=== PATIENT | female | born 1940 | race Caucasian/White ===

== ENCOUNTER → 2016-11-05 | Outpatient (CLI) | payer MEDICARE, OTHER ==
[2016-03-19 14:24] VITALS: BP 126/64
[~2016-11-05] MED LIST: ACET500T68 PO; ALBU18HF IH; ATOR10TA PO; CARV6.252 PO; ESOM40CA PO; FENO145T PO; FLUT1DIS IH; HYDR-971 PO; NITR100C62 PO; PSEU120T9 PO; ZOLP5TAB PO
--- NOTE | 2016-11-05 12:02 | RAD ---
DATE: 11/05/2016 EXAM: MAMMO SIL SCREENING BILATERAL Bilateral digital screening mammography to include digital breast tomosynthesis (3D mammography) HISTORY: Screening study. COMPARISON: 10/31/2015 This study was interpreted with the benefit of Computerized Aided Detection (CAD). FINDINGS: Digital MLO and CC mammograms of both breasts were obtained. Additionally digital breast tomosynthesis (3D mammography) images of both breasts in the MLO and CC projections were performed. Comparison study is dated 10/31/2015. The breast parenchyma is heterogeneously dense which can obscure a lesion on mammography (breast density code C). No spiculated mass is seen. No malignant appearing calcification or area of architectural distortion is noted. Benign-appearing calcifications are seen within both breasts. Digital breast tomosynthesis images demonstrate no spiculated mass or malignant appearing calcification. Since the previous examination there has been no significant interval change. IMPRESSION: BI-RADS Category 1, negative. There is no mammographic evidence of malignancy. Routine yearly screening mammography is recommended for follow-up. BI-RADS CATEGORY: 1 NEGATIVE RECOMMENDED FOLLOW-UP: 12M 12 MONTH FOLLOW-UP PQRS compliance statement: Patient information was entered into a reminder system with a target due date 11/05/2017 for the next mammogram. Mammography is a sensitive method for finding small breast cancers, but it does not detect them all and is not a substitute for careful clinical examination. A negative mammogram does not negate a clinically suspicious finding and should not result in delay in biopsying a clinically suspicious abnormality. "Our facility is accredited by the [employer] Mammography Program."
== END | disposition home or self-care (01) ==
LOC: MAMMO 10:40
PROVIDERS: ATTEND Specialist
DX: Z12.31 Encounter for screening mammogram for malignant neoplasm of breast (principal)
CPT/HCPCS: 77063; G0202; 77067

== ENCOUNTER 2016-11-22 22:45 | Emergency (ER) | payer MEDICARE, OTHER ==
[~2016-11-22] VITALS: Ht 167.6 cm; Wt 56.7 kg
[~2016-11-22 22:45] MED LIST changes: -FENO145T PO; +FENO145T32 PO
[2016-11-22] MEDS ORDERED: POTASSIUM CHLORIDE 20 MEQ/15 ML ORAL LIQUID. ONE (23:30)
[2016-11-22] MEDS ORDERED: cloNIDine HCL 0.1 MG TABLET ONE (23:30)
[2016-11-23 01:25] VITALS: BP 135/84
[2016-11-23 02:59] LABS: BILIRUBIN,URINE NEG (NEG); CLARITY,URINE CLEAR; COLOR,URINE YELLOW; GLUCOSE,URINE NEG (NEG); NITRITE,URINE NEG (NEG); UROBILINOGEN,URINE 0.2 mg/dL (0.2 mg/dL)
[2016-11-23 03:00] LABS: BACTERIA,URINE FEW /HPF (0-FEW); RBC,URINE RARE /HPF (0-2); WBC,URINE 0 /HPF (0-4)
[2016-11-23 03:08] LABS: CALCIUM 9.3 mg/dL (8.5-10.1)
[2016-11-23 03:09] LABS: GFR 54.2; HEMOGLOBIN 13.8 g/dL (12.0-15.5); POTASSIUM 3.2 mmol/L (3.5-5.1); RED BLOOD COUNT 4.91 x10^6/uL (3.50-5.40); WHITE BLOOD COUNT 6.6 x10^3/uL (4.0-11.0)
[2016-11-23] MEDS ORDERED: ESOM20CA PO (03:09)
[2016-11-23] MEDS ORDERED: CARV3.12 PO (03:09)
[2016-11-23 03:10] LABS: BASO # 0.1 x10^3/uL (0.0-0.2); BASO % 2 % (0-3); EOS # 0.2 x10^3/uL (0.0-0.7); EOS % 3 % (0-3); HEMATOCRIT 41.9 % (36.0-47.0); LYMPH # 2.4 x10^3/uL (1.0-4.8); LYMPH % 36 % (24-48); MEAN CORPUSCULAR HEMOGLOBIN 28 pg (25-35); MEAN CORPUSCULAR HGB CONC 33 g/dL (31-37); MEAN CORPUSCULAR VOLUME 85 fL (79-100); MONO # 0.4 x10^3/uL (0.0-1.1); MONO % 6 % (0-9); NEUT # 3.6 x10^3uL (1.8-7.7); NEUT % 54 % (31-73); PLATELET COUNT 237 x10^3/uL (140-400); RED CELL DISTRIBUTION WIDTH 13.7 % (11.5-14.5)
[2016-11-23] MEDS ORDERED: RANI300T PO (03:11)
[2016-11-23] MEDS ORDERED: DIPH25CA58 PO (03:12)
[2016-11-23] MEDS ORDERED: [UNRECOGNIZED DRUG - CODE] TP (03:12)
--- NOTE | 2016-11-26 12:14 | EKG ---
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
== END 2016-11-23 01:37 | disposition home or self-care (01) ==
LOC: ER 22:45
DX: I10 Essential (primary) hypertension (principal); E87.6 Hypokalemia; K21.9 Gastro-esophageal reflux disease without esophagitis; Z88.0 Allergy status to penicillin; Z88.6 Allergy status to analgesic agent; Z88.1 Allergy status to other antibiotic agents
CPT/HCPCS: 36415; 80048; 81001; 84484; 85027; 85379; 99284; 99285-25

== ENCOUNTER → 2018-01-13 | Outpatient (CLI) | payer MEDICARE, OTHER ==
[~2018-01-13] MED LIST changes: +CARV3.12 PO; +DIPH25CA58 PO; +ESOM20CA PO; +RANI300T PO; +[UNRECOGNIZED DRUG - CODE] TP
--- NOTE | 2018-01-13 13:24 | RAD ---
DATE: 01/13/2018 EXAM: MAMMO SIL SCREENING BILATERAL HISTORY: Routine screening COMPARISON: 11/05/2016 This study was interpreted with the benefit of Computerized Aided Detection (CAD). The breast parenchyma is heterogeneously dense, which could reduce sensitivity of mammography. Breast parenchyma level C. FINDINGS: 2-D and 3-D tomosynthesis imaging was performed in CC and MLO projections. No new or enlarging breast densities are seen. Minimal benign type calcifications are present. No suspicious microcalcifications have developed. IMPRESSION: Stable mammograms without evidence of malignancy. BI-RADS CATEGORY: 2 BENIGN FINDING(S) RECOMMENDED FOLLOW-UP: 12M 12 MONTH FOLLOW-UP PQRS compliance statement: Patient information was entered into a reminder system with a target due date for the next mammogram. Mammography is a sensitive method for finding small breast cancers, but it does not detect them all and is not a substitute for careful clinical examination. A negative mammogram does not negate a clinically suspicious finding and should not result in delay in biopsying a clinically suspicious abnormality. "Our facility is accredited by the [employer] Mammography Program."
== END | disposition home or self-care (01) ==
LOC: MAMMO 11:14
PROVIDERS: ATTEND Specialist
DX: Z12.31 Encounter for screening mammogram for malignant neoplasm of breast (principal)
CPT/HCPCS: 77063; 77067

== ENCOUNTER → 2019-01-14 | Outpatient (CLI) | payer MEDICARE, OTHER ==
[~2019-01-14] MED LIST changes: -ALBU18HF IH; +ALBU2.5V8 IH; -CARV6.252 PO; +CARV6.2541 PO; +HYDR-3165 PO; -HYDR-971 PO
--- NOTE | 2019-01-20 13:04 | RAD ---
DATE: 01/14/2019 EXAM: MAMMO SIL SCREENING BILATERAL HISTORY: Routine screening COMPARISON: 01/13/2018 This study was interpreted with the benefit of Computerized Aided Detection (CAD). Breast Density: SCATTERED The breast parenchyma shows scattered fibroglandular densities. Breast parenchyma level B. FINDINGS: 2-D and 3-D tomosynthesis imaging was performed in CC and MLO projections. No new or enlarging breast densities are seen. Benign type calcifications are present. No suspicious microcalcifications have developed. IMPRESSION: There is no mammographic evidence of malignancy in either breast. BI-RADS CATEGORY: 2 BENIGN FINDING(S) RECOMMENDED FOLLOW-UP: 12M 12 MONTH FOLLOW-UP PQRS compliance statement: Patient information was entered into a reminder system with a target due date for the next mammogram. Mammography is a sensitive method for finding small breast cancers, but it does not detect them all and is not a substitute for careful clinical examination. A negative mammogram does not negate a clinically suspicious finding and should not result in delay in biopsying a clinically suspicious abnormality. "Our facility is accredited by the [employer] Mammography Program."
== END | disposition home or self-care (01) ==
LOC: MAMMO 10:31
PROVIDERS: ATTEND Specialist
DX: Z12.31 Encounter for screening mammogram for malignant neoplasm of breast (principal); N64.89 Other specified disorders of breast
CPT/HCPCS: 77063; 77067

== ENCOUNTER → 2021-08-14 | Outpatient (CLI) | payer MEDICARE, OTHER ==
--- NOTE | 2021-08-14 13:47 | RAD ---
XR RT WRIST 3VIEWS History: Reason: FALL A FEW DAYS AGO, WRIST PAIN / Spl. Instructions: / History: Technique: 3 views right wrist Comparison: None. Findings: No dislocation. Slight linear sclerosis through the mid aspect of the scaphoid. Widening of the scaph olunate interval on PA view measures approximately 4 mm. Impression: 1. Widening of the scapholunate interval, suggesting scapholunate ligament injury. 2. Slight linear sclerosis through the mid scaphoid, may represent fracture. Recommend correlation f or point tenderness. Dedicated scaphoid view can further assess. Electronically signed by: Tim Castillo DO (08/14/2021 1:45 PM) [id number]
== END ==
LOC: RAD 10:21
PROVIDERS: ATTEND Specialist
DX: E23.6 Other disorders of pituitary gland (principal)
CPT/HCPCS: 73110

== ENCOUNTER → 2021-09-12 | Outpatient (CLI) | payer MEDICARE, OTHER ==
[~2021-09-12] MED LIST changes: +CALC-712 PO; +CARV6.25 PO; +CETI10TA74 PO; +CHOL10004 PO; +DONE5TAB56 PO; +ESTR30CR VG; +MULT-735 PO; +NORT10CA PO; +OMEG-32 PO; +PANT40TA3 PO; +SERT50TA PO
--- NOTE | 2021-09-12 10:32 | RAD ---
EXAM: Right wrist, 3 views. HISTORY: Pain. Fracture follow-up. COMPARISON: 08/14/2021 FINDINGS: 3 views of the right wrist are obtained. There is persistent widening of the scapholunate i nterval favoring chronic ligament injury. There is a subacute triquetral fracture. There is slight co rtical irregularity involving the distal pole the scaphoid which is likely degenerative or the sequel a of remote injury. IMPRESSION: 1. Subacute minimally displaced triquetral fracture. 2. Stable widening of the scapholunate interval favoring chronic scapholunate ligament injury. Electronically signed by: Luciana Morgan MD (09/12/2021 10:30 AM) [id number]
== END ==
LOC: RAD 10:00
PROVIDERS: ATTEND Orthopaedic Surgery
DX: S62.111A Displaced fracture of triquetrum [cuneiform] bone, right wrist, initial encounter for closed fracture (principal); M25.531 Pain in right wrist; X58.XXXA Exposure to other specified factors, initial encounter; Y93.89 Activity, other specified; Y92.89 Other specified places as the place of occurrence of the external cause; Y99.8 Other external cause status
CPT/HCPCS: 73110

== ENCOUNTER 2021-09-13 23:56 | Inpatient (IN) | payer MEDICARE, OTHER ==
[~2021-09-13] VITALS: Ht 167.6 cm; Wt 50.4 kg
[~2021-09-13 23:56] MED LIST changes: -CALC-712 PO; -CARV6.25 PO; -CETI10TA74 PO; -CHOL10004 PO; -DONE5TAB56 PO; -ESTR30CR VG; -MULT-735 PO; -NORT10CA PO; -OMEG-32 PO; -PANT40TA3 PO; -SERT50TA PO
[2021-09-14] MEDS ORDERED: IV RINGERS SOLUTION,LACTATED 1,000 ML IV ONE ×2 (00:15→02:45)
[2021-09-14] MEDS ORDERED: METOCLOPRAMIDE HCL 10 MG/2 ML VIAL. IVP ONE (00:15)
--- NOTE | 2021-09-14 00:22 | PHYS DOC ---
Past History Past Medical History: GERD, High Cholesterol, Hypertension, Other Past Surgical History: Oophorectomy, Other Alcohol Use: Occasionally Drug Use: None Adult General Chief Complaint Chief Complaint: NAUSEA/VOMITING/DIARRHEA HPI HPI Patient is a 81-year-old female with a recent history of urinary tract infection treated with Bactrim who presents to the emergency department today with a chief complaint of nausea, vomiting and watery nonbloody diarrhea for a day. Denies any recent travel, traumas, illnesses, fevers, chest pain, shortness of breath, dysuria, hematuria, blood in the stool. Denies any known ill contacts. States up until this episode she was eating and drinking normally for her. Review of Systems Review of Systems Review of systems otherwise unremarkable except noted in HPI Allergies Allergies Allergies Coded Allergies Type Severity Reaction Last Updated Verified Penicillins Allergy Severe Anaphylaxis 09/14/21 Yes carisoprodol Allergy Intermediate 09/14/21 Yes tramadol Allergy Intermediate 09/14/21 Yes tetracycline Adverse Reaction Mild abdominal pain 09/14/21 Yes Physical Exam Physical Exam Constitutional: Well developed, well nourished, no acute distress, appears to not feel well [] HENT: Normocephalic, atraumatic, bilateral external ears normal, oropharynx dry, no oral exudates, nose normal. [] Eyes: conjunctiva normal, no discharge. [] Neck: Normal range of motion, no tenderness, supple, no stridor. [] Cardiovascular: Sinus bradycardia] Lungs & Thorax: Bilateral breath sounds clear to auscultation [] Abdomen: soft, generalized tenderness, no rebound or guarding, no masses, no pulsatile masses. [] Skin: Warm, dry, no erythema, no rash. [] Back: no CVA tenderness. [] Extremities: No tenderness, no cyanosis, no clubbing, ROM intact, no edema. [] Neurologic: Alert and oriented X 3, normal motor function, normal sensory function, no focal deficits noted. [] Psychologic: Affect normal, judgement normal, mood normal. [] EKG EKG [] Radiology/Procedures Radiology/Procedures [] Heart Score C/O Chest Pain: No Risk Factors: Risk Factors: DM, Current or recent (<one month) smoker, HTN, HLP, family history of CAD, obesity. Risk Scores: Risk Factors: DM, Current or recent (<one month) smoker, HTN, HLP, family history of CAD, obesity. Course & Med Decision Making Course & Med Decision Making Patient is a 81-year-old female who presents with a chief complaint of nausea, vomiting and diarrhea Vital signs notable for sinus bradycardia, hypertension. Physical exam noted above. Placed on the monitor with IV access established and IV fluid begun. Given antiemetics. EKG with a rate of 57, QRS 98, QTc of 492, no STEMI Laboratory analysis notable for elevated lipase suggestive of pancreatitis. Patient with no alcohol use and no obvious gallstone. Patient did recently start Bactrim which does have the rare complication of pancreatitis. Made NPO. Continued on fluid resuscitation. Nausea and pain medicine ordered as needed. Stopped Bactrim and started on cefepime. Discussed findings with family and recommended admission for continued evaluation treatment of her pancreatitis and urinary tract infection., Grateful, verbalized understanding and agreed with plan of admission to [facility]. [] Dragon Disclaimer Dragon Disclaimer This electronic medical record was generated, in whole or in part, using a voice recognition dictation system. Departure Departure: Impression: Primary Impression: Nausea vomiting and diarrhea Additional Impressions: Pancreatitis Urinary tract infection Admitting Physician: Carlos Do Condition: STABLE Referrals: RYLEE DALLAS MD (PCP) Problem Qualifiers JOSIAH NICOLE MD Sep 14, 2021 00:22
[2021-09-14 00:39] LABS: BASO # 0.1 x10^3/uL (0.0-0.2); BASO % 2 % (0-3); EOS # 0.2 x10^3/uL (0.0-0.7); EOS % 2 % (0-3); HEMATOCRIT 41.9 % (36.0-47.0); LYMPH # 1.4 x10^3/uL (1.0-4.8); LYMPH % 17 % (24-48); MEAN CORPUSCULAR HEMOGLOBIN 30 pg (25-35); MEAN CORPUSCULAR HGB CONC 33 g/dL (31-37); MEAN CORPUSCULAR VOLUME 89 fL (79-100); MONO # 0.5 x10^3/uL (0.0-1.1); MONO % 6 % (0-9); NEUT # 6.2 x10^3uL (1.8-7.7); NEUT % 73 % (31-73); PLATELET COUNT 200 x10^3/uL (140-400); RED BLOOD COUNT 4.73 x10^6/uL (3.50-5.40); RED CELL DISTRIBUTION WIDTH 13.6 % (11.5-14.5); WHITE BLOOD COUNT 8.5 x10^3/uL (4.0-11.0)
--- NOTE | 2021-09-14 00:48 | EKG ---
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
[2021-09-14 00:51] LABS: CALCIUM 9.3 mg/dL (8.5-10.1); CREATININE 1.2 mg/dL (0.6-1.0); GFR 43.3; POTASSIUM 3.5 mmol/L (3.5-5.1)
[2021-09-14 00:58] LABS: ALBUMIN 4.1 g/dL (3.4-5.0); ALBUMIN/GLOBULIN RATIO 1.4 (1.0-1.7); MAGNESIUM 2.1 mg/dL (1.8-2.4); TOTAL BILIRUBIN 0.4 mg/dL (0.2-1.0)
--- NOTE | 2021-09-14 01:00 | RAD ---
XR CHEST 1V INDICATION: cardiac w/u COMPARISON STUDY: 12/01/2014. FINDINGS: Lungs: Normal lung volume. No pulmonary mass or consolidation. The tracheobronchial tree and hilar st ructures are normal. Pleura: No pleural effusion or pneumothorax. Heart and Mediastinum: The cardiomediastinal silhouette is normal. Mild tortuosity of the thoracic ao rta. IMPRESSION: No consolidation. Electronically signed by: Jefry Henao MD (09/14/2021 12:57 AM) [facility]
[2021-09-14] MEDS ORDERED: IOHEXOL 300 MG/ML 75 ML VIAL. IV ONE (01:30)
[2021-09-14] MEDS ORDERED: CONTRAST GIVEN. MC PRN (01:45)
[2021-09-14 01:57] LABS: AMORPHOUS SEDIMENT,UR PRESENT /HPF; BACTERIA,URINE 0 /HPF (0-FEW); CLARITY,URINE HAZY; COLOR,URINE YELLOW; GLUCOSE,URINE NEG (NEG); NITRITE,URINE NEG (NEG); RBC,URINE OCC /HPF (0-2); SQUAMOUS EPITHELIAL CELL,UR OCC /LPF; UROBILINOGEN,URINE 0.2 mg/dL (0.2 mg/dL); WBC,URINE OCC /HPF (0-4)
--- NOTE | 2021-09-14 02:28 | RAD ---
CT ABDOMEN+PELVIS W History: Abd pain, elevated lipase Comparison: None. Technique: After administration of intravenous contrast, helical CT of the abdomen and pelvis was per formed from the lung bases through the ischial tuberosities. Coronal and sagittal reconstructions wer e obtained. 75 mL of Omnipaque 300 were used. One or more of the following dose reduction techniques were utilized: Automated exposure control (AEC), Adjustment of mA and/or kV according to patient size , Use of iterative reconstruction technique such as ASiR, CT scan done according to ALARA and image g ently/image wisely Abdomen Findings: The visualized lung bases are clear. The liver, gallbladder, pancreas, spleen, and bilateral adrenal glands are normal. Symmetric renal enhancement. There is no focal renal mass. There is no hydronephrosis. The visualized loops of small bowel are normal. Colonic diverticulosis. There is no evidence of bowel obstruction. Appendix is normal. There is no free fluid. There is no mesenteric or retroperitoneal adenopathy. The abdominal aorta is normal in caliber. Mild aortoiliac atherosclerotic disease. Pelvis Findings: Urinary bladder is normal. No pelvic free fluid. Transitional anatomy at the lumbosacral junction wit h the transitional element designated a lumbarized S1 vertebra with recent enteric disc at S1-S2. Deg enerative changes of the spine, worst at L4-5 with severe spinal canal stenosis. There is no acute bony abnormality. IMPRESSION: 1. Circumferential cervical thickening is poorly characterized by CT but could represent an infectiou s/inflammatory process or malignancy. Recommend pelvic ultrasound and/or direct visualization. 2. No peripancreatic inflammation or fluid collection. 3. Colonic diverticulosis. 4. Transitional lumbosacral anatomy. Severe spinal canal stenosis at L4-5. Electronically signed by: Jefry Henao MD (09/14/2021 2:26 AM) [facility]
[2021-09-14] MEDS ORDERED: MORPHINE SULFATE 2 MG/ML DISP.SYRIN. IVP PRN (02:45)
[2021-09-14] MEDS ORDERED: ONDANSETRON PF 4 MG/2 ML VIAL. IVP PRN (02:45)
[2021-09-14 04:23] VITALS: BP 162/83
[2021-09-14] MEDS ORDERED: CARV6.25 PO (04:30)
[2021-09-14] MEDS ORDERED: NORT10CA PO (04:30)
[2021-09-14] MEDS ORDERED: CALC-712 PO (04:30)
[2021-09-14] MEDS ORDERED: DONE5TAB56 PO (04:30)
[2021-09-14] MEDS ORDERED: CETI10TA74 PO (04:30)
[2021-09-14] MEDS ORDERED: MULT-735 PO (04:30)
[2021-09-14] MEDS ORDERED: SERT50TA PO (04:30)
[2021-09-14] MEDS ORDERED: ESTR30CR VG (04:30)
[2021-09-14] MEDS ORDERED: ATOR10TA PO (04:30)
[2021-09-14] MEDS ORDERED: OMEG-32 PO (04:30)
[2021-09-14] MEDS ORDERED: CHOL10004 PO (04:30)
[2021-09-14] MEDS ORDERED: PANT40TA3 PO (04:30)
[2021-09-14] MEDS: CEFEPIME HCL 1 GM in IV NORMAL SALINE 50ML 50 ML IV SCH ×3 (04:52→21:00)
[2021-09-14 11:00] VITALS: BP 133/68
--- NOTE | 2021-09-14 11:54 | HP ---
DATE OF SERVICE: 09/14/2021 ADMIT DATE: 09/14/2021 ATTENDING PHYSICIAN: Dr. Do. CHIEF COMPLAINT: Abdominal pain. HISTORY OF PRESENT ILLNESS: The patient is a 81-year-old female admitted to the ED with new onset of nausea, vomiting, watery diarrhea for 1-day duration. She does drink wine at dinner. She had an elevated lipase. Workup showed evidence of acute pancreatitis. She was admitted then with alcoholic pancreatitis. There are no gallstones. PAST MEDICAL HISTORY: Significant for gastroesophageal reflux disease, hyperlipidemia, hypertension and a previous oophorectomy. SOCIAL HISTORY: She is a nonsmoker. Alcohol history noted, wine with dinner. ALLERGIES: SHE HAS SEVERAL ALLERGIES INCLUDING PENICILLIN, SOMA, TETRACYCLINE, AND TRAMADOL, EXACT REACTION IS UNCLEAR. CURRENT MEDICATIONS: Include a prescription for Bactrim. In addition, she was on scheduled Lipitor, calcium, Coreg, Zyrtec estrogens, multivitamin, nortriptyline, Protonix, Zoloft, and vitamin D. FAMILY HISTORY: Father of leukemia at age 53. Mom of old age at age 90. 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 She is . Her children are grown. REVIEW OF SYSTEMS: Significant for the alcohol use. There is no COVID exposure. All other systems reviewed and turned out to be negative. She had been on Bactrim for UTI. PHYSICAL EXAMINATION: GENERAL: When I saw her, this is a pleasant female. VITAL SIGNS: Initial vital signs showed a blood pressure 129/70, pulse is 61 and regular. She was afebrile, oxygen saturation 98% on room air. HEENT: Head is without trauma. Pupils are reactive. Sclerae nonicteric. Oropharynx is clear. NECK: Supple, no bruits identified. LUNGS: Clear to auscultation. CARDIOVASCULAR: Regular heart tones. ABDOMEN: Soft. EXTREMITIES: Without edema. ABDOMEN: Shows no guarding or rebound tenderness. PERTINENT LABORATORY STUDIES: On admission, her hemoglobin was 14.0 g/dL with a white count 8500. Chemistry panel normal electrolytes. Her lipase was 1500. Creatinine 1.2 mg percent. Urinalysis is clear. Serology negative for coronavirus. IMAGING STUDIES: Chest x-ray unremarkable. Abdominal and pelvic CT show circumferential cervical thickening, which is unremarkable. It is not related to her symptoms. The pancreas and gallbladder are unremarkable at this time. ASSESSMENT: 1. A 81-year-old female with acute pancreatitis. 2. Alcoholic pancreatitis. 3. History of hypertension. 4. Abnormal findings on CT pelvis. She told me she had a normal PAP smear in the last several weeks. I will try to ascertain this through her primary care doctor. PLAN: 1. Admit. 2. Pain and nausea control. 3. Gentle IV hydration. 4. N.p.o. except for ice chips at this time. ROMELIA DR: Marybel TID: [id number] CC: RYLEE DALLAS MD
[2021-09-14 15:00] VITALS: BP 152/76
[2021-09-14 20:33] VITALS: BP 148/70
[2021-09-14] MEDS: IV RINGERS SOLUTION,LACTATED 1,000 ML IV SCH (21:00)
[2021-09-14 23:04] VITALS: BP 166/73
[2021-09-15 05:36] VITALS: BP 176/78
[2021-09-15] MEDS ORDERED: ACETAMINOPHEN 325 MG TABLET PO ONE ×3 (06:12→06:42)
[2021-09-15 06:40] LABS: BASO % 1 % (0-3); EOS # 0.2 x10^3/uL (0.0-0.7); EOS % 3 % (0-3); HEMATOCRIT 39.4 % (36.0-47.0); HEMOGLOBIN 13.1 g/dL (12.0-15.5); LYMPH % 20 % (24-48); MEAN CORPUSCULAR HEMOGLOBIN 30 pg (25-35); MEAN CORPUSCULAR HGB CONC 33 g/dL (31-37); MEAN CORPUSCULAR VOLUME 90 fL (79-100); MONO # 0.3 x10^3/uL (0.0-1.1); MONO % 7 % (0-9); NEUT # 3.5 x10^3uL (1.8-7.7); NEUT % 70 % (31-73); PLATELET COUNT 158 x10^3/uL (140-400); RED CELL DISTRIBUTION WIDTH 13.5 % (11.5-14.5)
[2021-09-15 06:58] LABS: CALCIUM 8.7 mg/dL (8.5-10.1); CREATININE 0.9 mg/dL (0.6-1.0); GFR 60.4; POTASSIUM 3.7 mmol/L (3.5-5.1)
[2021-09-15] MEDS ORDERED: CARVEDILOL 12.5 MG TABLET PO SCH (08:00)
[2021-09-15 08:26] VITALS: BP 133/67
[2021-09-15] MEDS: CEFEPIME HCL 1 GM in IV NORMAL SALINE 50ML 50 ML IV SCH (09:00)
[2021-09-15] MEDS: IV RINGERS SOLUTION,LACTATED 1,000 ML IV SCH (10:20)
--- NOTE | 2021-09-15 13:12 | DS ---
DATE OF DISCHARGE: 09/15/2021 ATTENDING PHYSICIAN: Dr. Do. FINAL DISCHARGE DIAGNOSES: 1. Acute pancreatitis. Etiology most likely alcohol related. 2. History of hypertension. 3. History of uterine prolapse. 4. Mild dementia. 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 She drinks wine socially and I believe this is just enough to trigger this. OBJECTIVE FINDINGS, PHYSICAL EXAMINATION: Please see the dictated note. PERTINENT LABORATORY AND X-RAY STUDIES: Admission hemoglobin was 14.5 g/dL, white count 8500. Chemistry panel admission lipase was 1565, repeated the next day was down to 381. Electrolytes within normal range. Potassium replaced to 3.7 mEq, creatinine 0.[address] of the abdomen and pelvis showed early signs of pancreatitis. She has some abnormal thickening of her uterine wall, this is related to her uterine prolapse. She has had a recent Pap smear. She is scheduled to have a pessary provided for her through a Gynecology services at [facility]. COURSE IN HOSPITAL: The patient was admitted. She was kept n.p.o. Pain and nausea controlled. Gentle IV hydration. She was better. Diet was advanced to liquids. She tolerated well. By the third hospital day, her vital signs were quite stable. Her abdominal pain had subsided. Blood pressure and vital signs were quite normal. She is discharged home with recommendations to follow a bland diet for 48 hours. Her home meds are unchanged. She will continue with Tylenol as needed for pain. This is managing it. In addition, she will continue her Tylenol, calcium, Coreg, Zyrtec, cholecalciferol, diphenhydramine, Aricept, estrogens, multivitamin, Protonix, and Zoloft. For now, I held nortriptyline. She was discharged then from our hospital in stable condition with explicit drug and followup care with Dr. Dallas. Total discharge time was 41 minutes. JANNIE/NIMESH DR: Marybel TID: [id number] CC: RYLEE DALLAS MD
== END 2021-09-15 10:00 | disposition home or self-care (01) | DRG 439 ==
LOC: ER 23:56 → ER HOLD 09-14 02:37 → 1 SOUTH 09-14 03:34
PROVIDERS: ADMIT Hospitalist; ATTEND Hospitalist
DX: K85.20 Alcohol induced acute pancreatitis without necrosis or infection (principal); N39.0 Urinary tract infection, site not specified; E78.00 Pure hypercholesterolemia, unspecified; Z20.822 Contact with and (suspected) exposure to COVID-19; E78.5 Hyperlipidemia, unspecified; F03.90 Unspecified dementia, unspecified severity, without behavioral disturbance, psychotic disturbance, mood disturbance, and anxiety; I10 Essential (primary) hypertension; N81.4 Uterovaginal prolapse, unspecified; K21.9 Gastro-esophageal reflux disease without esophagitis; K57.30 Diverticulosis of large intestine without perforation or abscess without bleeding; Z80.6 Family history of leukemia; Z88.0 Allergy status to penicillin; Z88.8 Allergy status to other drugs, medicaments and biological substances
CPT/HCPCS: 36415; 71045; 73110; 74177; 80048; 80053; 81001; 83690; 83735; 84484; 85025; 87426; 93005; 96361; 96374; J0692; J2270; J2765; J7120; P9612; Q9967; U0003; 99285-25

== ENCOUNTER → 2021-10-15 | Outpatient (CLI) | payer MEDICARE, OTHER ==
[2021-09-15 08:26] VITALS: BP 133/67
[~2021-10-15] MED LIST changes: +CALC-712 PO; +CARV6.25 PO; +CETI10TA74 PO; +CHOL10004 PO; +DONE5TAB56 PO; +ESTR30CR VG; +MULT-735 PO; +NORT10CA PO; +OMEG-32 PO; +PANT40TA3 PO; +SERT50TA PO
--- NOTE | 2021-10-15 09:39 | RAD ---
INDICATION: Reason: ACUTE PANCREATITIS WITHOUT NECROSIS OR INFECTION / Spl. Instructions: / History: COMPARISON: September 14, 2021 TECHNIQUE: Grayscale and color ultrasound images obtained through the abdomen. FINDINGS: Pancreas: Largely obscured by bowel gas Liver: Echotexture within normal limits. Gallbladder: No definite stones or wall thickening. Common Bile Duct: Not dilated. Right Kidney: No hydronephrosis. Left Kidney: No hydronephrosis. Spleen: 10 mm echogenic lesion Aorta/IVC: Limited assessment secondary to overlying structures obscuring. Atherosclerotic disease at visualized portion. IMPRESSION: * The pancreas is largely obscured by overlying bowel gas. * No definite gallstones or common bile duct dilation. * Echogenic lesion within spleen. Indeterminate appearance but one of the most common causes would b e hemangioma. Electronically signed by: Bora Dean MD (10/15/2021 9:37 AM) [id number]
== END ==
LOC: US 08:15
PROVIDERS: ATTEND Specialist
DX: K85.90 Acute pancreatitis without necrosis or infection, unspecified (principal); D73.89 Other diseases of spleen
CPT/HCPCS: 76700

== ENCOUNTER → 2021-10-15 | Outpatient (CLI) | payer MEDICARE, OTHER ==
[2021-09-15 08:26] VITALS: BP 133/67
--- NOTE | 2021-10-15 09:27 | RAD ---
INDICATION: Reason: INCOMPLETE BLADDER EMPTYING; ABNORMAL CT 09-14-21 / Spl. Instructions: / History : COMPARISON: September 14, 2021 FINDINGS: Transabdominal and transvaginal images are obtained of the pelvis. Limited examination secondary to limited bladder filling as well as the patient having pain with roth svaginal imaging. Bilateral ovaries are not seen. Uterus is 75 x 23 mm. Endometrial stripe is 1-2 mm. There are some echogenic foci at the lower uterine segment. Portions the uterus are seen secondary to includes at the lower uterine segment to cervical region at the region of interest on recent CT. IMPRESSION: * Very limited exam secondary to incomplete filling of the bladder and the patient having trouble t olerating transvaginal imaging. The region of concern at the lower uterine segment to cervical region on CT is not well visualized on this exam secondary to overlying structures obscuring. Would correla te as to whether the patient has had any history of surgery to the cervical region which could explai n this to ensure that there is not an alternative cause such as a mass in the area or infectious etio logy such as phlegmon. Electronically signed by: Bora Dean MD (10/15/2021 9:25 AM) [id number]
== END ==
LOC: US 08:30
PROVIDERS: ATTEND Specialist
DX: R33.9 Retention of urine, unspecified (principal)
CPT/HCPCS: 76830; 76856

== ENCOUNTER 2021-10-19 15:12 | Emergency (ER) | payer MEDICARE, OTHER ==
[~2021-10-19] VITALS: Ht 167.6 cm; Wt 50.4 kg
[2021-10-19] MEDS ORDERED: IV NORMAL SALINE 1,000ML 1,000 ML IV ONE (16:00)
--- NOTE | 2021-10-19 16:22 | RAD ---
AP chest. HISTORY: Syncope AP view was taken of the chest. Lungs are free of infiltrates. Heart is normal in size. There is no p leural effusion. IMPRESSION: 1. No acute chest disease. Electronically signed by: Lenny Braga MD (10/19/2021 4:19 PM) [facility]
[2021-10-19 17:09] LABS: BASO % 1 % (0-3); EOS # 0.1 x10^3/uL (0.0-0.7); EOS % 2 % (0-3); HEMATOCRIT 39.9 % (36.0-47.0); HEMOGLOBIN 13.4 g/dL (12.0-15.5); LYMPH % 14 % (24-48); MEAN CORPUSCULAR HEMOGLOBIN 30 pg (25-35); MEAN CORPUSCULAR HGB CONC 34 g/dL (31-37); MEAN CORPUSCULAR VOLUME 89 fL (79-100); MONO # 0.3 x10^3/uL (0.0-1.1); MONO % 5 % (0-9); NEUT # 5.5 x10^3uL (1.8-7.7); NEUT % 79 % (31-73); PLATELET COUNT 199 x10^3/uL (140-400); RED BLOOD COUNT 4.49 x10^6/uL (3.50-5.40); RED CELL DISTRIBUTION WIDTH 13.9 % (11.5-14.5)
[2021-10-19 17:26] LABS: CALCIUM 8.4 mg/dL (8.5-10.1); CREATININE 0.8 mg/dL (0.6-1.0); GFR 69.2; POTASSIUM 4.2 mmol/L (3.5-5.1)
[2021-10-19 17:32] LABS: ALBUMIN 3.8 g/dL (3.4-5.0); ALBUMIN/GLOBULIN RATIO 1.4 (1.0-1.7); TOTAL BILIRUBIN 0.3 mg/dL (0.2-1.0); TOTAL PROTEIN 6.5 g/dL (6.4-8.2)
--- NOTE | 2021-10-19 17:54 | PHYS DOC ---
Past History Past Medical History: GERD, High Cholesterol, Hypertension, Other Past Surgical History: Oophorectomy, Other Alcohol Use: Occasionally Drug Use: None Adult General Chief Complaint Chief Complaint: SYNCOPE HPI HPI The patient is a 81yo female with a history of hypertension and mild cognitive issues. She lives at home with her . Ms. Trammell presents for evaluation of a brief syncopal episode occurring at home prior to arrival. Patient states that she went to the bathroom and had a large loose stool. She arose from the toilet, felt lightheaded and then fainted. She was able to lower herself to the ground and did not fully pass out. She denies hitting or hurting anything during the episode. She is not in any blood thinners. She admits to poor oral intake today; she states she was just not hungry and had only a bowl of oatmeal for breakfast and nothing for lunch. She denies pain anywhere and specifically denies fevers, nausea or vomiting, headache, focal or lateralizing weakness, numbness or tingling, neck stiffness/pain/meningismus, vision changes, upper respiratory congestion/rhinorrhea, cough, sore throat, shortness of breath or chest pain of any kind either prior to, during or after the episode in question, abdominal pain of any kind, flank pain, midline back pain, dysuria, hematuria, polyuria or oliguria, changes in bowel habits, pain or swelling to arms or legs. Patient is alert and pleasantly appropriately interactive and in no acute distress with appropriate vital signs upon initial evaluation here in the emergency department. Review of Systems Review of Systems Constitutional: Denies fever or chills [] Eyes: Denies change in visual acuity, redness, or eye pain [] HENT: Denies nasal congestion or sore throat [] Respiratory: Denies cough or shortness of breath [] Cardiovascular: No additional information not addressed in HPI [] GI: Denies abdominal pain, nausea, vomiting, bloody stools or diarrhea [] : Denies dysuria or hematuria [] Musculoskeletal: Denies back pain or joint pain [] Integument: Denies rash or skin lesions [] Neurologic: Denies headache, focal weakness or sensory changes [] Endocrine: Denies polyuria or polydipsia [] All other systems were reviewed and found to be within normal limits, except as documented in this note. Current Medications Current Medications Current Medications Medications (Trade) Dose Ordered Sig/Tony Start Time Stop Time Status Last Admin Dose Admin Sodium Chloride 1,000 ml @ 1,000 mls/hr 1X ONCE 10/19/21 16:00 10/19/21 16:59 DC 10/19/21 16:00 1,000 MLS/HR Allergies Allergies Allergies Coded Allergies Type Severity Reaction Last Updated Verified Penicillins Allergy Severe Anaphylaxis 09/14/21 Yes carisoprodol Allergy Intermediate 09/14/21 Yes tramadol Allergy Intermediate 09/14/21 Yes tetracycline Adverse Reaction Mild abdominal pain 09/14/21 Yes Physical Exam Physical Exam Constitutional: Well developed, well nourished, no acute distress, non-toxic appearance. [] HENT: Normocephalic, atraumatic, bilateral external ears normal, oropharynx moist, no oral exudates, nose normal. [] Eyes: PERRLA, EOMI, conjunctiva normal, no discharge. [] Neck: Normal range of motion, no tenderness, supple, no stridor. [] Cardiovascular:Heart rate regular rhythm, no murmur [] Lungs & Thorax: Bilateral breath sounds clear to auscultation [] Abdomen: Bowel sounds normal, soft, no tenderness, no masses, no pulsatile masses. [] Skin: Warm, dry, no erythema, no rash. [] Back: No tenderness, no CVA tenderness. [] Extremities: No tenderness, no cyanosis, no clubbing, ROM intact, no edema. [] Neurologic: Alert and oriented X 3, normal motor function, normal sensory function, no focal deficits noted. [] Psychologic: Affect normal, judgement normal, mood normal. [] Current Patient Data Vital Signs Vital Signs Date Time Temp Pulse Resp B/P (MAP) Pulse Ox O2 Delivery O2 Flow Rate FiO2 10/19/21 15:21 98.1 57 18 154/75 (101) 100 Room Air Lab Results Laboratory Tests Test 10/19/21 16:20 White Blood Count 7.0 x10^3/uL (4.0-11.0) Red Blood Count 4.49 x10^6/uL (3.50-5.40) Hemoglobin 13.4 g/dL (12.0-15.5) Hematocrit 39.9 % (36.0-47.0) Mean Corpuscular Volume 89 fL (79-100) Mean Corpuscular Hemoglobin 30 pg (25-35) Mean Corpuscular Hemoglobin Concent 34 g/dL (31-37) Red Cell Distribution Width 13.9 % (11.5-14.5) Platelet Count 199 x10^3/uL (140-400) Neutrophils (%) (Auto) 79 % (31-73) H Lymphocytes (%) (Auto) 14 % (24-48) L Monocytes (%) (Auto) 5 % (0-9) Eosinophils (%) (Auto) 2 % (0-3) Basophils (%) (Auto) 1 % (0-3) Neutrophils # (Auto) 5.5 x10^3uL (1.8-7.7) Lymphocytes # (Auto) 1.0 x10^3/uL (1.0-4.8) Monocytes # (Auto) 0.3 x10^3/uL (0.0-1.1) Eosinophils # (Auto) 0.1 x10^3/uL (0.0-0.7) Basophils # (Auto) 0.0 x10^3/uL (0.0-0.2) Sodium Level 138 mmol/L (136-145) Potassium Level 4.2 mmol/L (3.5-5.1) Chloride Level 104 mmol/L (98-107) Carbon Dioxide Level 25 mmol/L (21-32) Anion Gap 9 (6-14) Blood Urea Nitrogen 11 mg/dL (7-20) Creatinine 0.8 mg/dL (0.6-1.0) Estimated GFR (Cockcroft-Gault) 69.2 BUN/Creatinine Ratio 14 (6-20) Glucose Level 118 mg/dL (70-99) H Calcium Level 8.4 mg/dL (8.5-10.1) L Total Bilirubin 0.3 mg/dL (0.2-1.0) Aspartate Amino Transferase (AST) Pending Alanine Aminotransferase (ALT) Pending Alkaline Phosphatase 96 U/L (46-116) Troponin I High Sensitivity 6 ng/L (4-50) Total Protein 6.5 g/dL (6.4-8.2) Albumin 3.8 g/dL (3.4-5.0) Albumin/Globulin Ratio 1.4 (1.0-1.7) EKG EKG Sinus rhythm, rate 59, no acute ST elevation or depression, TX 164, QRS 92, QTc 438, EP interpretation. Nonischemic tracing, intervals appropriate. Radiology/Procedures Radiology/Procedures AP chest. HISTORY: Syncope AP view was taken of the chest. Lungs are free of infiltrates. Heart is normal in size. There is no pleural effusion. IMPRESSION: 1. No acute chest disease. Electronically signed by: Lenny Braga MD (10/19/2021 4:19 PM) [facility] DICTATED AND SIGNED BY: LENNY BRAGA MD DATE: 10/19/211617 CC: KAREN MADDOX MD; RYLEE DALLAS MD ~ Heart Score C/O Chest Pain: No Risk Factors: Risk Factors: DM, Current or recent (<one month) smoker, HTN, HLP, family history of CAD, obesity. Risk Scores: Risk Factors: DM, Current or recent (<one month) smoker, HTN, HLP, family history of CAD, obesity. Course & Med Decision Making Course & Med Decision Making Well-appearing 81-year-old female presenting for what was probably an orthostatic syncopal episode at home prior to arrival following a loose stool. Henry syncope risk score 0, low risk. Labs, EKG and chest x-ray are unremarkable. Patient feels much better after IV fluids and is ambulatory with a narrow, steady, unassisted gait here in the emergency department. In view of reassuring work-up in this well-appearing elderly female, will discharge home to follow-up closely with primary care. Patient and her understand that if she feels worse instead of better, has recurrent symptoms or develops other new symptoms of concern that she should return to the emergency department immediately for reevaluation. All questions are answered. Dragon Disclaimer Dragon Disclaimer This electronic medical record was generated, in whole or in part, using a voice recognition dictation system. Departure Departure: Impression: Primary Impression: Syncope and collapse Disposition: 01 HOME / SELF CARE / HOMELESS Condition: IMPROVED Referrals: RYLEE DALLAS MD (PCP) Patient Instructions: Syncope Additional Instructions: Follow-up very closely with your primary care doctor in the office in the next 2 to 4 days for a reevaluation of your symptoms and a discussion of next best steps in care. Make an extra effort to stay hydrated and to eat small frequent meals, even if you are not feeling that hungry. You may try Ensure shakes if you do not feel like eating a full meal. Return to the emergency department ri ght away for recurrent or worsening symptoms of any kind or with any other new symptoms of concern. KAREN MADDOX MD Oct 19, 2021 17:54
[2021-10-19 18:03] LABS: CLARITY,URINE CLOUDY; COLOR,URINE YELLOW; GLUCOSE,URINE NEG (NEG)
[2021-10-19 18:04] LABS: BACTERIA,URINE MANY /HPF (0-FEW); NITRITE,URINE POS (NEG); RBC,URINE 0 /HPF (0-2); SQUAMOUS EPITHELIAL CELL,UR FEW /LPF; UROBILINOGEN,URINE 0.2 mg/dL (0.2 mg/dL); WBC,URINE 0 /HPF (0-4)
--- NOTE | 2021-10-19 23:46 | EKG ---
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
== END 2021-10-19 18:18 | disposition home or self-care (01) ==
LOC: ER 15:12
DX: R55 Syncope and collapse (principal); R42 Dizziness and giddiness; R19.7 Diarrhea, unspecified; K21.9 Gastro-esophageal reflux disease without esophagitis; E78.00 Pure hypercholesterolemia, unspecified; I10 Essential (primary) hypertension; Z88.0 Allergy status to penicillin; Z88.1 Allergy status to other antibiotic agents; Z88.8 Allergy status to other drugs, medicaments and biological substances
CPT/HCPCS: 36415; 71045; 80053; 81001; 84484; 85025; 87077; 87086; 87186; 93005; 96360; 96361; 99285; J7030